=== PATIENT | female | born 1995 | race Caucasian/White ===

== ENCOUNTER 2022-10-11 21:14 | Outpatient (REF) | payer OTHER, SELFPAY ==
[2022-10-16 16:08] LABS: Age Gdln ACOG Testing Note (.); IGP, rfx Aptima HPV ASCU Note (.)
== END 2022-10-11 21:15 | disposition home or self-care (01) ==
LOC: LAB 21:14
PROVIDERS: Visit Provider Obstetrics & Gynecology
DX: R87.610 Atypical squamous cells of undetermined significance on cytologic smear of cervix (ASC-US) (principal); R87.810 Cervical high risk human papillomavirus (HPV) DNA test positive
CPT/HCPCS: G0145

== ENCOUNTER 2023-04-20 19:27 | Outpatient (REF) | payer OTHER, SELFPAY ==
[2023-05-02 21:11] LABS: Age Gdln ACOG Testing Note (.); HPV Aptima Negative (Negative); IGP, rfx Aptima HPV ASCU Note (.)
== END 2023-04-20 19:28 | disposition home or self-care (01) ==
LOC: LAB 19:27
PROVIDERS: Visit Provider Obstetrics & Gynecology
DX: Z01.419 Encounter for gynecological examination (general) (routine) without abnormal findings (principal)
CPT/HCPCS: G0145

== ENCOUNTER 2024-05-01 20:47 | Outpatient (REF) | payer OTHER, SELFPAY ==
--- OUTSIDE RECORDS SUMMARY | 2024-05-01 20:50 | XMS_ITS | CCD ---
Author Organization [facility] Care Team Providers Care Card Services Specialist Name Role Phone Jaylene DYE Wilson Primary Care Physician [phone] WENDY, DR NUNES Primary Care Unavailable ROCK ., DR ATKINS Admitting Unavailable ROCK ., DR ATKINS Consulting Unavailable ROCK ., DR ATKINS Attending Unavailable ROCK ., DR ATKINS Admitting Unavailable ROCK ., DR ATKINS Consulting Unavailable ROCK ., DR ATKINS Attending Unavailable WENDY, DR NUNES Primary Care Unavailable WILBERT MCCARTHY Attending Unavailable Doni Stephens MD Primary Care Provider [phone] Allergies Allergy Classification Reported Allergen(s) Allergy Type Date of Onset Reaction(s) Facility (2 sources) buPROPion; Translations: [bupropion] Drug Allergy 3 Eruption of skin (disorder), [facility] (3 sources) Sulfamethoxazole / Trimethoprim; Translations: [sulfamethoxazole-tr imethoprim] Drug Allergy 3 Weal (disorder), H[facility] (1 source) Sulfamethoxazole / Trimethoprim Drug Allergy 3 [facility] Repository Medications Current Medications Medication Drug Class(es) Dates Sig (Normalized) Sig (Original) Ethinyl Estradiol / Levonorgestrel (2 sources) Progestin, Estrogen, Progestin-containi ng Intrauterine Device Start: 10-04-2023 levonorgestrel-ethi nyl estradiol (Seasonale) 0.15-0.03 MG tablet Indications: Encounter for surveillance of contraceptive pills TAKE ONE TABLET BY MOUTH DAILY 91 tablet 4 10/04/2023 Active Start: 04-20-2023 levonorgestrel -ethinyl estradiol (Nordette) 0.15-30 MG-MCG tablet Indications: Encounter for surveillance of contraceptive pills Take 1 tablet by mouth in the morning. 28 tablet 11 04/20/2023 Active ethinyl estradiol-levonorgestrel extended cycle 30 mcg-0.15 mg Tab (1 source) Start: 04-25-2019 take 1 tablet by mouth once daily ethinyl estradiol-levonorgestrel extended cycle 30 mcg-0.15 mg Tab 1 tab(s), Oral, Daily, Refill(s) 0 Start Date: 04/25/19 Status: Ordered lisdexamfetamine dimesylate 30 mg oral capsule (1 source) Central Nervous System Stimulant Start: 07-20-2021 take 1 capsule by mouth once daily in the morning Vyvanse 30 mg oral capsule 30 mg, 1 cap(s), Oral, qAM, 30 cap(s), Refill(s) 0, [facility], 166, cm, 07/20/21 15:41:00 EDT, Height/Length Dosing, 60, kg, 07/20/21 15:41:00 EDT, Weight Dosing Start Date: 07/20/21 Status: Ordered Problems Active Problems Problem Classification Problem Date Documented Date Episodic/Chronic Attention-deficit, conduct, and disruptive behavior disorders (1 source) Adult attention deficit hyperactivity disorder 06-15-2021 Chronic Disorders usually diagnosed in infancy, childhood, or adolescence (1 source) Behavioral and emotional disorder with onset in childhood; Translations: [Other specified behavioral and emotional disorders with onset usually occurring in childhood and adolescence] Onset: 07-20-2021 Chronic Immunizations and screening for infectious disease (1 source) Encounter for screening for human papillomavirus (HPV); Translations: [ENC SCREENING HUMAN PAPILLOMAVIRUS] Onset: 05-13-2022 Episodic Other nervous system disorders (1 source) Disorder of autonomic nervous system 06-24-2014 Chronic Residual codes; unclassified (1 source) Body mass index 20-24 - normal; Translations: [Body mass index (BMI) 21.0-21.9, adult] Onset: 07-20-2021 Episodic Skin and subcutaneous tissue infections (1 source) Impetigo 03-10-2021 Episodic Unclassified (1 source) Body mass index 20-24 - normal 03-10-2021 Past or Other Problems Problem Classification Problem Date Documented Da te Episodic/Chronic Other screening for suspected conditions (not mental disorders or infectious disease) (4 sources) Encounter for screening for malignant neoplasm of cervix; Translations: [ENC SCREENING MALIG NEOPLASM CERV] Onset: 10-07-2021 Episodic Unclassified (1 source) Onset: 10-25-2013 Resolved: 06-24-2014 10-02-2014 Results Test Name Value Interpretation Reference Range Facility Pap IG, rfx Aptima HPV, rfx 16/18,45on 05-17-2022 . . Normal [facility] Comment on above: Result Comment: Perf ormed at: [facility] Performed By: #### P APHR2A #### [facility] [address] [address] [address] Vj George DIAGNOSIS: Comment Abnormal [facility] Comment on above: Result Comment: EPIT HELIAL CELL ABNORMALITY. ATYPICAL SQUAMOUS CELLS OF UNDETERMINED SIGNIFICANCE (ASC-US). Performed at: [facility] Performed By: #### P APHR2A #### [facility] [address] [address] [address] Vj George Electronically signed by: Comment Normal [facility] Comment on above: Result Comment: Jake Beverly MD (Charles), Pathologist Performed at: [facility] Performed By: #### P APHR2A #### [facility] [address] [address] [address] Vj George HPV Aptima Positive Abnormal Negative [facility] Comment on above: Result Comment: This nucleic acid amplification test detects fourteen high-risk HPV types (16,18,31,33,35,39,45,51,52,56,58,59,66,68) without differentiation. Performed at: =G Performed By: #### P APHR2A #### [facility] [address] [address] [address] Vj George HPV Genotype Reflex Comment Normal [facility] Comment on above: Result Comment: Crit eria not met, HPV Genotype not performed. Performed at: [facility] Performed By: #### P APHR2A #### [facility] [address] [address] [address] Vj George Methodology: Comment [facility] Comment on above: Result Comment: This liquid based ThinPrep(R) pap test was screened with the use of an image guided system. Performed at: WB Performed By: #### P APHR2A #### [facility] [address] [place] [address] Dr. Vj George Note: Comment [facility] Comment on above: Result Comment: The Pap smear is a screening test designed to aid in the detection of premalignant and malignant conditions of the uterine cervix. It is not a diagnostic procedure and should not be used as the sole means of detecting cervical cancer. Both false-positive and false-negative reports do occur. . Performed at: WB Performed By: #### P APHR2A #### [facility] [address] [address] [address] Vj Geroge Pathologist Provided ICD10 Comment [facility] Comment on above: Result Comment: R87. 610 Performed at: [facility] Performed By: #### P APHR2A #### [facility] [address] [place] [address] Dr. Vj George Performed by: Comment Normal [facility] Comment on above: Result Comment: Alem Grimm Client Program Manager (ASCP) Performed at: [facility] Performed By: #### P APHR2A #### [facility] [address] [place] [address] Dr. Vj George Specimen adequacy: Comment Normal [facility] Comment on above: Result Comment: Sati sfactory for evaluation. Endocervical and/or squamous metaplastic cells (endocervical component) are present. Performed at: [facility] Performed By: #### P APHR2A #### [facility] [address] [address] [address] Vj George PAP ACOG PANEL 2: 21 to 29on 10-14-2021 . . [facility] Comment on above: Performed By: #### [id number] #### [facility] [address] [address] [address] Vj George Age Gdln ACOG Testing - [facility] Comment on above: Performed By: #### [id number] #### [facility] [address] [place] [address] Dr. Vj George DIAGNOSIS: Comment Abnormal [facility] Comment on above: Result Comment: EPIT HELIAL CELL ABNORMALITY. ATYPICAL SQUAMOUS CELLS OF UNDETERMINED SIGNIFICANCE (ASC-US). Performed By: #### [id number] #### [facility] [address] [place] [address] Dr. Vj George Electronically signed by: Comment Normal [facility] Comment on above: Result Comment: Loly Young MD, Pathologist Performed By: #### [id number] #### [facility] [address] [place] [address] Dr. Vj George HPV Aptima Positive Abnormal Negative [facility] Comment on above: Result Comment: This nucleic acid amplification test detects fourteen high-risk HPV types (16,18,31,33,35,39,45,51,52,56,58,59,66,68) without differentiation. Performed By: #### [id number] #### [facility] [address] [place] [address] Dr. Vj George Methodology: Comment Normal [facility] Comment on above: Result Comment: This liquid based ThinPrep(R) pap test was screened with the use of an image guided system. Performed By: #### [id number] #### [facility] [address] [place] [address] Dr. Vj George Note: Comment Normal [facility] Comment on above: Result Comment: The Pap smear is a screening test designed to aid in the detection of premalignant and malignant conditions of the uterine cervix. It is not a diagnostic procedure and should not be used as the sole means of detecting cervical cancer. Both false-positive and false-negative reports do occur. . Performed By: #### 4 [id number] #### [facility] [address] [place] [address] Dr. Vj George Pathologist Provided ICD10 Comment Normal [facility] Comment on above: Result Comment: R87. 610 Performed By: #### 4 [id number] #### [facility] [address] [place] [address] Dr. Vj George Performed by: Comment Normal [facility] Comment on above: Result Comment: Rey Alan, Client Program Manager (ASCP) Performed By: #### [id number] #### [facility] [address] [address] [address] Vj George Recommendation: Comment Abnormal [facility] Comment on above: Result Comment: Sugg est follow up as clinically appropriate. Performed By: #### [id number] #### [facility] [address] [address] [address] Vj George Reflex Criteria: Comment Normal [facility] Comment on above: Result Comment: See below for HPV testing results. . Performed By: #### 4 [id number] #### [facility] [address] [address] [address] Vj George Specimen adequacy: Comment Normal [facility] Comment on above: Result Comment: Sati sfactory for evaluation. Endocervical and/or squamous metaplastic cells (endocervical component) are present. Performed By: #### 4 [id number] #### [facility] [address] [address] [address] Vj George Family Medicine Video Visit - Telehealthon 07-20-2021 Family Medicine Video Visit - Telehealth Chief Complaint pt having video visit via [employer] for 1mo add chk, rf vyvanse to [facility] History of Present Illness Telehealth visit via video for 1 month follow-up appointment to reassess ADD symptoms. Patient last evaluated per this provider on 06/15/2021 -see note, at that time Vyvanse increased to 30 mg once daily. Able to better concentrate, stay focused and on task more so throughout the day, previously felt medication lost its effect after first few weeks of taking. Medication more so beneficial at 30 mg dosing. Eating and drinking appropriately. Sleeping well. Patient would like to continue current medication regimen. There has been no chest pain, shortness of breath, palpitations or syncopal episodes. Review of Systems Review of Systems: See HPI. Constitutional: See HPI. Cardiovascular: Denies chest pain or pressure, palpitations. Neurologic: See HPI. Gastrointestinal: Eating and drinking appropriately. Physical Exam Vitals & Measurements HT: 166 cm HT: 166.0 cm WT: 60 kg WT: 60.0 kg BMI: 21.77 General: Well developed, well nourished, female adult in no acute distress sitting upright in living room setting. Engages with provider appropriately. Head: Normocephalic/atraumati c. Eyes: No conjunctival irritation. Ears: Grossly normal hearing. Nose: No discharge. Mouth: MMM, talkative. Chest: No distress. Skin: Skin is fairly tanned. Mental Status: Alert and cooperative. Pleasant, appreciative. Assessment/Plan 1. Adult attention deficit disorder (F98.8: Other specified behavioral and emotional disorders with onset usually occurring in childhood and adolescence) Well-controlled with current dosing of Vyvanse 30 mg. Prescription refills provided. OARRS reviewed and is appropriate. Patient tolerates medication well, denies adverse effects. Continue current medication regimen as prescribed. Agreeable to 3-month follow-up appointment to reassess condition. Please call if questions or concerns arise prior to follow-up appointment as scheduled. 2. BMI 21.0-21.9, adult (Z68.21: Body mass index [BMI] 21.0-21.9, adult) Maintain a healthy weight. This visit was conducted via two-way, real-time interactive video communications from my office using [employer] due to the restrictions of the COVID-19 pandemic. No physical exam was conducted other than those areas of the body visible to telecommunications with the patient located at [address] [place] [address] [phone], with no one else in attendance. If it is determined that the patient should be evaluated in the clinic, the patient will be directed to the appropriate clinic or venue. The patient or their guardian verbally consented to this visit. Total time spent preparing the chart, conducting the encounter with the patient and family, and time spent documenting, reviewing, and ordering tests was 15 minutes. Please Note: Portions of this chart may have been created using [employer] voice recognition software. Occasional wrong-word or sound-like substitutions may have occurred due to inherent limitations of the voice recognition software. Please read the chart carefully and recognize, using context, where the substitutions have occurred. Follow-up With When Contact Information [facility] Within 3 months Additional Instructions: Patient Education BMI for Adults Problem List/Past Medical History Ongoing Adult attention deficit disorder BMI 21.0-21.9, adult Impetigo vulgaris Historical Medications ethinyl estradiol-levonorgestre l extended cycle 30 mcg-0.15 mg Tab, 1 tab(s), Oral, Daily Vyvanse 30 mg oral capsule, 30 mg= 1 cap(s), Oral, qAM Allergies Bactrim (Hives) Septra Wellbutrin (Rash) Social History Alcohol - Denies Alcohol Use, 06/24/2014 Current, Beer, 1-2 times per month, 04/25/2019 Substance Abuse - Denies Substance Abuse, 06/24/2014 Tobacco - Denies Tobacco Use, 06/24/2014 Never (less than 100 in lifetime) Tobacco Use:. Never Smokeless Tobacco Use:., 07/20/2021 Family History Depression: Mother and Father. Hyperlipidemia: Father. Hypertension: Father. Primary malignant neoplasm of colon: Father. Immunizations Vaccine Date Status Comments SARS-CoV-2 (COVID-19) Ad26 vaccine - Not Given Postpone due to refusal influenza virus vaccine, inactivated - Not Given Patient Refuses influenza virus vaccine, live, trivalent - Not Given Patient Refuses Normal [facility] Comment on above: Result Comment: Elec tronically Signed By: Jaylene DYE CNP\.danya\Date and Time Signed: 07/20/21 16:25 EDT Patient Educationon 07-21-19 22 Patient Education Nutrition BMI for Adults Body mass index (BMI) is a number that is calculated from a person's weight and height. BMI may help to estimate how much of a person's weight is composed of fat. BMI can help identify those who may be at higher risk for certain medical problems. How is BMI used with adults? BMI is used as a screening tool to identify possible weight problems. It is used to check whether a person is obese, overweight, healthy weight, or underweight. How is BMI calculated? BMI measures your weight and compares it to your height. This can be done either in [place] or metric measurements. Note that charts are available to help you find your BMI quickly and easily without having to do these calculations yourself. To calculate your BMI in [place] measurements, your health care provider will: 1. Measure your weight in pounds (lb). 2. Multiply the number of pounds by 703. ? For example, for a person who weighs 180 lb, multiply that number by 703, which equals 126,540. 3. Measure your height in inches (in). Then multiply that number by itself to get a measurement called inches squared. ? For example, for a person who is 70 in tall, the inches squared measurement is 70 in x 70 in, which equals 4900 inches squared. 4. Divide the total from Step 2 (number of lb x 703) by the total from Step 3 (inches squared): 126,540 ? 4900 = 25.8. This is your BMI. To calculate your BMI in metric measurements, your health care provider will: 1. Measure your weight in kilograms (kg). 2. Measure your height in meters (m). Then multiply that number by itself to get a measurement called meters squared. ? For example, for a person who is 1.75 m tall, the meters squared measurement is 1.75 m x 1.75 m, which is equal to 3.1 meters squared. 3. Divide the number of kilograms (your weight) by the meters squared number. In this example: 70 ? 3.1 = 22.6. This is your BMI. How is BMI interpreted? To interpret your results, your health care provider will use BMI charts to identify whether you are underweight, normal weight, overweight, or obese. The following guidelines will be used: ? Underweight: BMI less than 18.5. ? Normal weight: BMI between 18.5 and 24.9. ? Overweight: BMI between 25 and 29.9. ? Obese: BMI of 30 and above. Please note: ? Weight includes both fat and muscle, so someone with a muscular build, such as an athlete, may have a BMI that is higher than 24.9. In cases like these, BMI is not an accurate measure of body fat. ? To determine if excess body fat is the cause of a BMI of 25 or higher, further assessments may need to be done by a health care provider. ? BMI is usually interpreted in the same way for men and women. Why is BMI a useful tool? BMI is useful in two ways: ? Identifying a weight problem that may be related to a medical condition, or that may increase the risk for medical problems. ? Promoting lifestyle and diet changes in order to reach a healthy weight. Summary ? Body mass index (BMI) is a number that is calculated from a person's weight and height. ? BMI may help to estimate how much of a person's weight is composed of fat. BMI can help identify those who may be at higher risk for certain medical problems. ? BMI can be measured using [place] measurements or metric measurements. ? To interpret your results, your health care provider will use BMI charts to identify whether you are underweight, normal weight, overweight, or obese. This information is not intended to replace advice given to you by your health care provider. Make sure you discuss any questions you have with your health care provider. Document Released: 11/22/2004 Document Revised: 02/23/2018 Document Reviewed: 01/24/2018 [employer] Patient Education ? 2019 [employer]. [facility] Family Medicine Office/Clini c Noteon 06-15-2021 Family Medicine Office/Clinic Note Chief Complaint Here for f/u on ADD. History of Present Illness Here today for 1 month follow-up appointment to reassess difficulty concentrating. Patient last evaluated per this provider via telehealth on 05/11/2021. At that time Vyvanse 20 mg prescribed, over the past month patient has noted much improvement in her ability to focus and stay on task. Since beginning medication she feels as if her daily routine has improved, better able to relax in the evening, now getting a full night sleep. Feels after the first week of initiating medication, medication seemed less effective. Continues to eating and drinking appropriately. Tolerates medication well, denies adverse side effects. There has been no chest pain, shortness of breath, palpitations or syncopal episodes. Review of Systems PHQ Score Initial Depression Screen Score: 0 Review of Systems: See HPI. Constitutional: See HPI. EENT: Denies hearing changes, visual changes. Cardiovascular: Denies chest pain or pressure, shortness of breath with normal activity, palpitations. Neurologic: Denies weakness, numbness or tingling, headaches. See HPI. Physical Exam Vitals & Measurements T: 36.2 ?C(Tympanic) HR: 88(Peripheral) RR: 12 BP: 114/70 HT: 166 cm HT: 166.0 cm WT: 60.0 kg WT: 60.0 kg BMI: 21.77 General: Well developed, well nourished, female adult in no acute distress sitting upright on exam table. Head: Normocephalic/atraumati c. Eyes: No conjunctival irritation, pupils symmetric. Ears: Grossly normal hearing. Nose: No discharge. Mouth: MMM, talkative. Neck: Supple. No carotid bruits, bilaterally. Chest: No distress. Lungs: Normal respiratory effort and clear to auscultation. No rhonchi or wheeze. Cardio: RRR, without murmur. Musculoskeletal: Steady gait. Neurologic: Grossly normal. Skin: Skin is fairly tanned, warm and dry. Mental Status: Alert and cooperative. Pleasant, appreciative. Assessment/Plan 1. Adult attention deficit disorder (F98.8: Other specified behavioral and emotional disorders with onset usually occurring in childhood and adolescence) Much improvements have been noted, yet patient notes room for improvement. We will increase Vyvanse dosing to 30 mg once daily. OARRS reviewed and is appropriate. Agreeable to 1 month follow-up appointment to reassess symptoms. Discussed potential side effects of medication and addiction potential. Patient verbalizes understanding and agrees with plan. 2. BMI 21.0-21.9, adult (Z68.21: Body mass index [BMI] 21.0-21.9, adult) Maintain a healthy weight. Please Note: Portions of this chart may have been created using [employer] voice recognition software. Occasional wrong-word or sound-like substitutions may have occurred due to inherent limitations of the voice recognition software. Please read the chart carefully and recognize, using context, where the substitutions have occurred. Follow-up With When Contact Information Jaylene DYE CNP In [address] [place] [phone] Additional Instructions: telehealth f/u ok. Patient Education BMI for Adults Problem List/Past Medical History Ongoing Adult attention deficit disorder BMI 21.0-21.9, adult Impetigo vulgaris Historical Medications ethinyl estradiol-levonorgestre l extended cycle 30 mcg-0.15 mg Tab, 1 tab(s), Oral, Daily Vyvanse 30 mg oral capsule, 30 mg= 1 cap(s), Oral, qAM Allergies Bactrim (Hives) Septra Wellbutrin (Rash) Social History Alcohol - Denies Alcohol Use, 06/24/2014 Current, Beer, 1-2 times per month, 04/25/2019 Substance Abuse - Denies Substance Abuse, 06/24/2014 Tobacco - Denies Tobacco Use, 06/24/2014 Never (less than 100 in lifetime) Tobacco Use:. Never Smokeless Tobacco Use:., 06/15/2021 Family History Depression: Mother and Father. Hyperlipidemia: Father. Hypertension: Father. Primary malignant neoplasm of colon: Father. Immunizations Vaccine Date Status Comments influenza virus vaccine, inactivated - Not Given Patient Refuses influenza virus vaccine, live, trivalent - Not Given Patient Refuses Total time spent preparing the chart, conducting of the encounter with the patient and family and time spent documenting, reviewing, and ordering tests was 20 minutes. [facility] Comment on above: Result Comment: Elec tronically Signed By: Jaylene DYE CNP\.danya\Date and Time Signed: 06/15/21 13:25 EDT Patient Educationon 06-16-19 Patient Education Nutrition BMI for Adults Body mass index (BMI) is a number that is calculated from a person's weight and height. BMI may help to estimate how much of a person's weight is composed of fat. BMI can help identify those who may be at higher risk for certain medical problems. How is BMI used with adults? BMI is used as a screening tool to identify possible weight problems. It is used to check whether a person is obese, overweight, healthy weight, or underweight. How is BMI calculated? BMI measures your weight and compares it to your height. This can be done either in [place] ([place] or metric measurements. Note that charts are available to help you find your BMI quickly and easily without having to do these calculations yourself. To calculate your BMI in [place] measurements, your health care provider will: 1. Measure your weight in pounds (lb). 2. Multiply the number of pounds by 703. ? For example, for a person who weighs 180 lb, multiply that number by 703, which equals 126,540. 3. Measure your height in inches (in). Then multiply that number by itself to get a measurement called inches squared. ? For example, for a person who is 70 in tall, the inches squared measurement is 70 in x 70 in, which equals 4900 inches squared. 4. Divide the total from Step 2 (number of lb x 703) by the total from Step 3 (inches squared): 126,540 ? 4900 = 25.8. This is your BMI. To calculate your BMI in metric measurements, your health care provider will: 1. Measure your weight in kilograms (kg). 2. Measure your height in meters (m). Then multiply that number by itself to get a measurement called meters squared. ? For example, for a person who is 1.75 m tall, the meters squared measurement is 1.75 m x 1.75 m, which is equal to 3.1 meters squared. 3. Divide the number of kilograms (your weight) by the meters squared number. In this example: 70 ? 3.1 = 22.6. This is your BMI. How is BMI interpreted? To interpret your results, your health care provider will use BMI charts to identify whether you are underweight, normal weight, overweight, or obese. The following guidelines will be used: ? Underweight: BMI less than 18.5. ? Normal weight: BMI between 18.5 and 24.9. ? Overweight: BMI between 25 and 29.9. ? Obese: BMI of 30 and above. Please note: ? Weight includes both fat and muscle, so someone with a muscular build, such as an athlete, may have a BMI that is higher than 24.9. In cases like these, BMI is not an accurate measure of body fat. ? To determine if excess body fat is the cause of a BMI of 25 or higher, further assessments may need to be done by a health care provider. ? BMI is usually interpreted in the same way for men and women. Why is BMI a useful tool? BMI is useful in two ways: ? Identifying a weight problem that may be related to a medical condition, or that may increase the risk for medical problems. ? Promoting lifestyle and diet changes in order to reach a healthy weight. Summary ? Body mass index (BMI) is a number that is calculated from a person's weight and height. ? BMI may help to estimate how much of a person's weight is composed of fat. BMI can help identify those who may be at higher risk for certain medical problems. ? BMI can be measured using [place] measurements or metric measurements. ? To interpret your results, your health care provider will use BMI charts to identify whether you are underweight, normal weight, overweight, or obese. This information is not intended to replace advice given to you by your health care provider. Make sure you discuss any questions you have with your health care provider. Document Released: 11/22/2004 Document Revised: 02/23/2018 Document Reviewed: 01/24/2018 [employer] Patient Education ? 2019 [employer] Normal [facility] Family Medicine Video Visit - Telehealthon 05-12-2021 Family Medicine Video Visit - Telehealth Chief Complaint Video apt for f/u for medication for Wellbutrin. She started to itch really bad, took allergy meds it didn't help. Stopped the medication monday and itch is better but still there. History of Present Illness Telehealth visit via video for 1 month follow-up appointment to reassess difficulty concentrating. Patient last evaluated per this provider on 04/07/2021 -see note. At that time increased dosing of Wellbutrin she noticed more difficulty sleeping and now has developed generalized itching. Has since discontinued medication, itching has since improved. 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 At last office visit on 04/07/2021 patient completed ADHD adult self assessment, which did indicate potential underlying issue with attention deficit Review of Systems Review of Systems: See HPI. Constitutional: See HPI. Skin: See HPI. Denies rash. Neurologic: See HPI. Gastrointestinal: Eating and drinking appropriately. Psychiatric: Denies anxiety, depressed or hopeless, suicidal thoughts. Physical Exam Vitals & Measurements HT: 166.0 cm HT: 166 cm WT: 59.6 kg WT: 59.6 kg BMI: 21.63 General: Well developed, well nourished, adult female in no acute distress sitting upright in living room setting. Engages with provider appropriately. Head: Symmetric/atraumatic. Eyes: No conjunctival irritation. Ears: Grossly normal hearing. Mouth: MMM, talkative. Chest: No distress. Neurologic: Without tremor. Skin: Skin is fairly tanned. Mental Status: Alert and cooperative. Pleasant, appreciative, conversation appropriate. Assessment/Plan 1. Attention deficit disorder of adult (F98.8: Other specified behavioral and emotional disorders with onset usually occurring in childhood and adolescence) Patient with poor response with use of Wellbutrin, self-assessment questionnaire indicating underlying issue with attention deficit disorder in adult, will trial low-dose Vyvanse, reviewed directions for use along with potential side effects of medication. Denies chance of , compliant with OCP. Agreeable to 1 month follow-up appointment to reassess condition and medication tolerance. Please call if questions or concerns arise prior to follow-up appointment as scheduled. Patient verbalizes understanding and agrees with plan. OARRS reviewed and is unremarkable. 2. BMI 21.0-21.9, adult (Z68.21: Body mass index [BMI] 21.0-21.9, adult) Maintain a healthy weight. This visit was conducted via two-way, real-time interactive video communications from my office using [employer] due to the restrictions of the COVID-19 pandemic. No physical exam was conducted other than those areas of the body visible to telecommunications with the patient located at [address] [place] [address] [phone], with no one else in attendance. If it is determined that the patient should be evaluated in the clinic, the patient will be directed to the appropriate clinic or venue. The patient or their guardian verbally consented to this visit. Total time spent preparing the chart, conducting the encounter with the patient and family, and time spent documenting, reviewing, and ordering tests was 20 minutes. Please Note: Portions of this chart may have been created using [employer] voice recognition software. Occasional wrong-word or sound-like substitutions may have occurred due to inherent limitations of the voice recognition software. Please read the chart carefully and recognize, using context, where the substitutions have occurred. Follow-up With When Contact Information Jaylene DYE CNP In [address] [place] [phone] Additional Instructions: Patient Education BMI for Adults Problem List/Past Medical History Ongoing BMI 21.0-21.9, adult Impetigo vulgaris Historical Medications ethinyl estradiol-levonorgestre l extended cycle 30 mcg-0.15 mg Tab, 1 tab(s), Oral, Daily Vyvanse 20 mg oral capsule, 20 mg= 1 cap(s), Oral, qAM Allergies Bactrim (Hives) Septra Wellbutrin (Rash) Social History Alcohol - Denies Alcohol Use, 06/24/2014 Current, Beer, 1-2 times per month, 04/25/2019 Substance Abuse - Denies Substance Abuse, 06/24/2014 Tobacco - Denies Tobacco Use, 06/24/2014 Never (less than 100 in lifetime) Tobacco Use:. Never Smokeless Tobacco Use:., 05/11/2021 Family History Depression: Mother and Father. Hyperlipidemia: Father. Hypertension: Father. Primary malignant neoplasm of colon: Father. Immunizations Vaccine Date Status Comments influenza virus vaccine, live, trivalent - Not Given Patient Refuses [facility] Comment on above: Result Comment: Elec tronically Signed By: Jaylene DYE CNP\.danya\Date and Time Signed: 05/12/21 11:27 EST Patient Educationon 05-11-19 Patient Education Nutrition BMI for Adults Body mass index (BMI) is a number that is calculated from a person's weight and height. BMI may help to estimate how much of a person's weight is composed of fat. BMI can help identify those who may be at higher risk for certain medical problems. How is BMI used with adults? BMI is used as a screening tool to identify possible weight problems. It is used to check whether a person is obese, overweight, healthy weight, or underweight. How is BMI calculated? BMI measures your weight and compares it to your height. This can be done either in [place] or metric measurements. Note that charts are available to help you find your BMI quickly and easily without having to do these calculations yourself. To calculate your BMI in [place] measurements, your health care provider will: 1. Measure your weight in pounds (lb). 2. Multiply the number of pounds by 703. ? For example, for a person who weighs 180 lb, multiply that number by 703, which equals 126,540. 3. Measure your height in inches (in). Then multiply that number by itself to get a measurement called inches squared. ? For example, for a person who is 70 in tall, the inches squared measurement is 70 in x 70 in, which equals 4900 inches squared. 4. Divide the total from Step 2 (number of lb x 703) by the total from Step 3 (inches squared): 126,540 ? 4900 = 25.8. This is your BMI. To calculate your BMI in metric measurements, your health care provider will: 1. Measure your weight in kilograms (kg). 2. Measure your height in meters (m). Then multiply that number by itself to get a measurement called meters squared. ? For example, for a person who is 1.75 m tall, the meters squared measurement is 1.75 m x 1.75 m, which is equal to 3.1 meters squared. 3. Divide the number of kilograms (your weight) by the meters squared number. In this example: 70 ? 3.1 = 22.6. This is your BMI. How is BMI interpreted? To interpret your results, your health care provider will use BMI charts to identify whether you are underweight, normal weight, overweight, or obese. The following guidelines will be used: ? Underweight: BMI less than 18.5. ? Normal weight: BMI between 18.5 and 24.9. ? Overweight: BMI between 25 and 29.9. ? Obese: BMI of 30 and above. Please note: ? Weight includes both fat and muscle, so someone with a muscular build, such as an athlete, may have a BMI that is higher than 24.9. In cases like these, BMI is not an accurate measure of body fat. ? To determine if excess body fat is the cause of a BMI of 25 or higher, further assessments may need to be done by a health care provider. ? BMI is usually interpreted in the same way for men and women. Why is BMI a useful tool? BMI is useful in two ways: ? Identifying a weight problem that may be related to a medical condition, or that may increase the risk for medical problems. ? Promoting lifestyle and diet changes in order to reach a healthy weight. Summary ? Body mass index (BMI) is a number that is calculated from a person's weight and height. ? BMI may help to estimate how much of a person's weight is composed of fat. BMI can help identify those who may be at higher risk for certain medical problems. ? BMI can be measured using [place] measurements or metric measurements. ? To interpret your results, your health care provider will use BMI charts to identify whether you are underweight, normal weight, overweight, or obese. This information is not intended to replace advice given to you by your health care provider. Make sure you discuss any questions you have with your health care provider. Document Released: 11/22/2004 Document Revised: 02/23/2018 Document Reviewed: 01/24/2018 [employer] Patient Education ? 2019 [employer]. Normal [facility] Screenson 04-14-2021 Screens [id number] D:127 Normal [facility] Family Medicine Office/Clini c Noteon 04-08-2021 Family Medicine Office/Clinic Note Chief Complaint Here for f/u on concentration issues. She doesn't notice any difference. History of Present Illness Suzi presents for follow-up on difficulty concentrating, she was last evaluated 03/10/2021. She started taking Wellbutrin to help with concentration. She states that she is unsure if this has been working for her because she is still having some trouble concentrating. The patient denies side effects or allergic reaction to the medication. Mother has been diagnosed with bipolar disorder as well as anxiety. The patient is aware that bipolar disorder can be hereditary and denies having any symptoms or suspicions of bipolar disorder in herself. Mood Disorder Questionnaire MDQ Increased hyperactivity : No MDQ Increased irritability : No MDQ Increased self-confidence : No MDQ Less need for sleep : No MDQ More and faster speech : Yes MDQ Racing thoughts : No MDQ Distracted/unable to concentrate : Yes MDQ Increased energy : No MDQ Increased activity : Yes MDQ Excessive, foolish, risky behavior : No MDQ Increased interest in sex : No MDQ Excessive, foolish, risky behavior : No MDQ Increased spending : No [1] Review of Systems See HPI. Constitutional: See HPI. EENT: Denies hearing changes, visual changes. Respiratory: Denies cough, wheezing or difficulty breathing. Cardiovascular: Denies chest pain or pressure, shortness of breath. Neurologic: Denies weakness, numbness or tingling, headaches. Gastrointestinal: Eating and drinking appropriately. Psychiatric: Denies anxiety, depressed or hopeless, suicidal thoughts. Positive for difficulty concentrating. Physical Exam Vitals & Measurements T: 36.2 ?C(Tympanic) HR: 100(Peripheral) RR: 16 BP: 110/60 HT: 166.0 cm HT: 166 cm WT: 59.6 kg WT: 59.6 kg BMI: 21.63 General: Well developed, well nourished, adult female in no acute distress sitting upright on exam table. Head: Wearing hat. Eyes: No conjunctival irritation. Ears: Grossly normal hearing. Mouth: Wearing mask given pandemic, talkative. Neck: Supple. Chest: No distress. Musculoskeletal: Steady gait. Neurologic: Without tremor. Skin: Skin is fairly tanned, warm and dry. Mental Status: Alert and cooperative. Pleasant, appreciative, conversation appropriate. Assessment/Plan 1. Difficulty concentrating (R41.840: Attention and concentration deficit) Increase Wellbutrin XL to 300 mg daily. Aware of directions for use along with potential side effects of medication. She will return in 1 month for reevaluation of this medication. Please call if questions or concerns arise prior to follow-up as scheduled. Patient verbalizes understanding and agrees with plan. 2. BMI 21.0-21.9, adult (Z68.21: Body mass index [BMI] 21.0-21.9, adult) Maintain a healthy weight. ATTESTATION: Documentation services were performed after patient or guardian consented to allow [employer] to record this visit. KATHE associate relations specialist and provider reviewed before signing. KATHE: Aditi Schuler. Reviewed and entered into [employer] by Joanie Morley. Follow-up With When Contact Information Jaylene DYE CNP In [address] [place], [place] [phone]- Additional Instructions: Patient Education BMI for Adults Problem List/Past Medical History Ongoing BMI 21.0-21.9, adult Difficulty concentrating Impetigo vulgaris Historical Medications ethinyl estradiol-levonorgestre l extended cycle 30 mcg-0.15 mg Tab, 1 tab(s), Oral, Daily Wellbutrin XL 300 mg/24 hours Tab-ER, 300 mg= 1 tab(s), Oral, Daily, 1 refills Allergies Bactrim (Hives) Septra Wellbutrin (Rash) Social History Alcohol - Denies Alcohol Use, 06/24/2014 Current, Beer, 1-2 times per month, 04/25/2019 Substance Abuse - Denies Substance Abuse, 06/24/2014 Tobacco - Denies Tobacco Use, 06/24/2014 Never (less than 100 in lifetime) Tobacco Use:. Never Smokeless Tobacco Use:., 04/07/2021 Family History Depression: Mother and Father. Hyperlipidemia: Father. Hypertension: Father. Primary malignant neoplasm of colon: Father. Immunizations Vaccine Date Status Comments influenza virus vaccine, live, trivalent - Not Given Patient Refuses [1] Mood Disorder Questionnaire (MDQ); Jaylene DYE CNP 04/07/2021 10:58 EST Normal [facility] Comment on above: Result Comment: Elec tronically Signed By: Jaylene DYE CNP\.br\Date and Time Signed: 04/08/21 15:00 EST\.br\Electronically Co-Signed By: Joanie Morley\.br\Date and Time Co-Signed: 04/07/21 13:52 EST Ambulatory Clinical Summaryo n 04-07-2021 Ambulatory Clinical Summary {[id number] Normal [facility] Patient Educationon 04-07-19 Patient Education Nutrition BMI for Adults Body mass index (BMI) is a number that is calculated from a person's weight and height. BMI may help to estimate how much of a person's weight is composed of fat. BMI can help identify those who may be at higher risk for certain medical problems. How is BMI used with adults? BMI is used as a screening tool to identify possible weight problems. It is used to check whether a person is obese, overweight, healthy weight, or underweight. How is BMI calculated? BMI measures your weight and compares it to your height. This can be done either in [place] or metric measurements. Note that charts are available to help you find your BMI quickly and easily without having to do these calculations yourself. To calculate your BMI in [place] measurements, your health care provider will: 1. Measure your weight in pounds (lb). 2. Multiply the number of pounds by 703. ? For example, for a person who weighs 180 lb, multiply that number by 703, which equals 126,540. 3. Measure your height in inches (in). Then multiply that number by itself to get a measurement called inches squared. ? For example, for a person who is 70 in tall, the inches squared measurement is 70 in x 70 in, which equals 4900 inches squared. 4. Divide the total from Step 2 (number of lb x 703) by the total from Step 3 (inches squared): 126,540 ? 4900 = 25.8. This is your BMI. To calculate your BMI in metric measurements, your health care provider will: 1. Measure your weight in kilograms (kg). 2. Measure your height in meters (m). Then multiply that number by itself to get a measurement called meters squared. ? For example, for a person who is 1.75 m tall, the meters squared measurement is 1.75 m x 1.75 m, which is equal to 3.1 meters squared. 3. Divide the number of kilograms (your weight) by the meters squared number. In this example: 70 ? 3.1 = 22.6. This is your BMI. How is BMI interpreted? To interpret your results, your health care provider will use BMI charts to identify whether you are underweight, normal weight, overweight, or obese. The following guidelines will be used: ? Underweight: BMI less than 18.5. ? Normal weight: BMI between 18.5 and 24.9. ? Overweight: BMI between 25 and 29.9. ? Obese: BMI of 30 and above. Please note: ? Weight includes both fat and muscle, so someone with a muscular build, such as an athlete, may have a BMI that is higher than 24.9. In cases like these, BMI is not an accurate measure of body fat. ? To determine if excess body fat is the cause of a BMI of 25 or higher, further assessments may need to be done by a health care provider. ? BMI is usually interpreted in the same way for men and women. Why is BMI a useful tool? BMI is useful in two ways: ? Identifying a weight problem that may be related to a medical condition, or that may increase the risk for medical problems. ? Promoting lifestyle and diet changes in order to reach a healthy weight. Summary ? Body mass index (BMI) is a number that is calculated from a person's weight and height. ? BMI may help to estimate how much of a person's weight is composed of fat. BMI can help identify those who may be at higher risk for certain medical problems. ? BMI can be measured using [place] measurements or metric measurements. ? To interpret your results, your health care provider will use BMI charts to identify whether you are underweight, normal weight, overweight, or obese. This information is not intended to replace advice given to you by your health care provider. Make sure you discuss any questions you have with your health care provider. Document Released: 11/22/2004 Document Revised: 02/23/2018 Document Reviewed: 01/24/2018 [employer] Patient Education ? 2019 [employer] [facility] Family Medicine Office/Clini c Noteon 03-11-2021 Family Medicine Office/Clinic Note Chief Complaint Here for face rash cream. Muprocician. Also having trouble focusing. History of Present Illness Mona Hernandez presents today for an evaluation. She is a previous patient of Danna Rice CNP. She reports having a impetigo-like rash that is present on her face. She states that this rash is occasionally present surrounding her mouth, on her ears, and on her nose. Her ears and nose have been clear of the rash for the last 4-5 months. She states that rash starts with a spot on her face. She has been washing her face with regular soap and water as well as applying mupirocin to the area, she has also been changing her face masks frequently. She denies any personal history of staph infection, her sister had contracted staph as a child. She is eating and drinking adequately. She has started a new business recently. She states that she feels overwhelmed at times and her mother had urged her to mention this during her appointment. She is unsure if this is due to recent life changes. She states that she has always had issues with concentration, she adds that her success in school varied. She reports a familial history of depression and anxiety. She does not believe she has issues with anxiety, she also denies having social anxiety. However, when under Danna's care, Danna had commented that she presented as anxious. She was initially place on Wellbutrin, she did not tolerate this well as she developed a rash. She is unsure if the rash was attributed to the Wellbutrin because she was also sick at the time this developed. She also notes having tinnitus and constipation initially with Wellbutrin, but these side effects began to subside. She also notes having more energy while on Wellbutrin. She was then placed on Lexapro, she has discontinued taking this as she did not believe it was helpful for her and she had felt shaky while on this medication. She had taken Lexapro for 2 months. She is willing to try Wellbutrin again. She denies any suicidal or homicidal ideations. She is able to fulfill her orders, she does note procrastinating some. She answers no to the depression questionnaire. She report having trouble relaxing and restlessness 2-3 days a week, this affects her work productivity. She rates this as somewhat difficult. She has a history of autonomic dysfunction. She states that when she was in high school she has recurrent episodes of syncope with exertion. She had a tilt table test performed and this was when she was diagnosed with autonomic dysfunction. She was on medication for this for a while. She states that she does not have many issues with this currently, there are times when she will feel dizzy. However, after sitting for a few minutes she feels fine. She is a [id number] mother to a 6-year-old daughter. Review of Systems PHQ Score Initial Depression Screen Score: 0 Initial Depression Screen Score: 0 Skin: Positive for facial rash. Neurologic: Denies weakness, numbness or tingling, headaches that are new or changing in frequency, visual disturbances. Positive for occasional dizziness, history of autonomic dysfunction. Psychiatric: Denies anxiety, depressed or hopeless, suicidal thoughts. Physical Exam Vitals & Measurements T: 36.5 ?C(Tympanic) HR: 72(Peripheral) RR: 12 BP: 120/60 HT: 166 cm HT: 166.0 cm WT: 60.3 kg WT: 60.3 kg BMI: 21.88 General: Well developed, well nourished, female adult in no acute distress sitting upright on exam table. Head: Normocephalic/atraumati c. Eyes: No conjunctival irritation. Ears: Grossly normal hearing. Nose: No discharge. Mouth: MMM, talkative. Neck: Supple. Chest: No distress. Musculoskeletal: Steady gait. Neurologic: Grossly normal. Skin: Skin is warm and dry. There is a 3 mm erythematous papule with overlying dry skin to cheek. No active discharge. Mental Status: Alert and cooperative. Pleasant, appreciative, conversation appropriate. Assessment/Plan 1. Impetigo vulgaris (L01.00: Impetigo, unspecified) History of this, presentation today with minimal, yet patient notes improvements with mupirocin use in the past. Mupirocin refilled and sent to patient's pharmacy -reviewed directions for use with patient. 2. Difficulty concentrating (R41.840: Attention and concentration deficit) We will restart Wellbutrin XL 150 mg once daily. If she develops a rash, she is to discontinue medication and notify me. Reviewed directions for use along with potential side effects of medication. We will follow-up in 1 month. 3. BMI 21.0-21.9, adult (Z68.21: Body mass index [BMI] 21.0-21.9, adult) Maintain a healthy weight. 4. Autonomic dysfunction (G90.9: Disorder of the autonomic nervous system, unspecified) Stable. Documentation services were performed after patient or guardian consented to allow Kristen Rush Wheatley to record this visit. KATHE associate relations specialist and provider reviewed before signing. KATHE: Cierra Martinez. Follow-up With When Contact Information MARNIE SOSA (more content not included)... Normal [facility] Comment on above: Result Comment: Elec tronically Signed By: Jaylene DYE CNP\.br\Date and Time Signed: 03/11/21 08:08 EST\.br\Electronically Co-Signed By: Cierra Martinez\.br\Date and Time Co-Signed: 03/10/21 18:49 EST Patient Educationon 03-10-20 Patient Education Infectious Disease Impetigo, Adult Impetigo is an infection of the skin. It commonly occurs in young children, but it can also occur in adults. The infection causes itchy blisters and sores that produce brownish-yellow fluid. As the fluid dries, it forms a thick, honey-colored crust. These skin changes usually occur on the face, but they can also affect other areas of the body. Impetigo usually goes away in 7?10 days with treatment. What are the causes? This condition is caused by two types of bacteria. It may be caused by staphylococci or streptococci bacteria. These bacteria cause impetigo when they get under the surface of the skin. This often happens after some damage to the skin, such as: ? Cuts, scrapes, or scratches. ? Rashes. ? Insect bites, especially when you scratch the area of a bite. ? Chickenpox or other illnesses that cause open skin sores. ? Nail biting or chewing. Impetigo can spread easily from one person to another (is contagious). It may be spread through close skin contact or by sharing towels, clothing, or other items that an infected person has touched. What increases the risk? The following factors may make you more likely to develop this condition: ? Playing sports that include [id number]-[id number] contact with others. ? Having a skin condition with open sores, such as chickenpox. ? Having diabetes. ? Having a weak body defense system (immune system). ? Having many skin cuts or scrapes. ? Living in an area that has high humidity levels. ? Having poor hygiene. ? Having high levels of staphylococci in your nose. What are the signs or symptoms? The main symptom of this condition is small blisters, often on the face around the mouth and nose. In time, the blisters break open and turn into tiny sores (lesions) with a yellow crust. In some cases, the blisters cause itching or burning. With scratching, irritation, or lack of treatment, these small lesions may get larger. Other possible symptoms include: ? Larger blisters. ? Pus. ? Swollen lymph glands. Scratching the affected area can cause impetigo to spread to other parts of the body. The bacteria can get under the fingernails and spread when you touch another area of your skin. How is this diagnosed? This condition is usually diagnosed during a physical exam. A skin sample or a sample of fluid from a blister may be taken for lab tests that involve growing bacteria (culture test). Lab tests can help to confirm the diagnosis or help to determine the best treatment. How is this treated? Treatment for this condition depends on the severity of the condition: ? Mild impetigo can be treated with prescription antibiotic cream. ? Oral antibiotic medicine may be used in more severe cases. ? Medicines that reduce itchiness (antihistamines)may also be used. Follow these instructions at home: Medicines ? Take jfhm-ecw-koluuaz and prescription medicines only as told by your health care provider. ? Apply or take your antibiotic as told by your health care provider. Do not stop using the antibiotic even if your condition improves. General instructions ? To help prevent impetigo from spreading to other body areas: ? Keep your fingernails short and clean. ? Do not scratch the blisters or sores. ? Cover infected areas, if necessary, to keep from scratching. ? Wash your hands often with soap and warm water. ? Before applying antibiotic cream or ointment, you should: ? Gently wash the infected areas with antibacterial soap and warm water. ? Soak crusted areas in warm, soapy water using antibacterial soap. ? Gently rub the areas to remove crusts. Do not scrub. ? Do not share towels. ? Wash your clothing and bedsheets in warm water that is 140?F (60?C) or warmer. ? Stay home until you have used an antibiotic cream for 48 hours (2 days) or an oral antibiotic medicine for 24 hours (1 day). You should only return to work and activities with other people if your skin shows significant improvement. ? You may return to contact sports after you have used antibiotic medicine for 72 hours (3 days). ? Keep all follow-up visits as told by your health care provider. This is important. How is this prevented? ? Wash your hands often with soap and warm water. ? Do not share towels, washcloths, clothing, bedding, or razors. ? Keep your fingernails short. ? Keep any cuts, scrapes, bug bites, or rashes clean and covered. ? Use insect repellent to prevent bug bites. Contact a health care provider if: ? You develop more blisters or sores even with treatment. ? Other family members get sores. ? Your skin sores are not improving after 72 hours (3 days) of treatment. ? You have a fever. Get help right away if: ? You see spreading redness or swelling of the skin around your sores. ? You see red streaks coming from your sores. ? You develop a sore throat. ? The area around your rash becomes warm, red, or tender to the (more content not included)... Normal [facility] Encounters Encounter Date Encounter Type Care Provider Facility Start: 05-01-2024 End: 05-01-2024 Plug Appsheet Wilbert Mccarthy DO Work Phone: [facility] Start: 05-01-2024 End: 05-01-2024 Plug Appsheet Wilbert Mccarthy DO Work Phone: [facility] Start: 04-20-2023 End: 04-20-2023 ambulatory WILBERT MCCARTHY Not Available Start: 05-13-2022 Encounter for cervic al smear to confirm findings of recent normal smear following initial abnormal smear DR WILBERT MCCARTHY . [facility] Start: 05-09-2022 End: 05-09-[address] WILBERT MCCARTHY . Facility:[facility] Start: 05-09-2022 End: 05-09-2022 Encounter for cervical smear to confirm findings of recent normal smear following initial abnormal smear DR WILBERT MCCARTHY . Facility:[facility] Start: 10-07-2021 End: 10-07-[address] DES NGUYEN Facility:[facility] Start: 07-20-2021 End: 07-20-2021 Off-Site Jaylene A DONNAMILLER [facility] Plan of Treatment Date Care Activity Detail Author Start: 05-01-2024 End: 05-01-2024 Patient encounter procedure 05/01/2024 11:00 AM EST Office Visit [facility] [address] [place] [id number] Wilbert Mccarthy DO [address] [place] [address] Arrived [facility] Comment on above: Arrived Immunizations Immunization Date Immunization Notes Care Provider Fa cilisushma NEGATED: Highlighted row has not occurred!07-20-2021 SARS-CoV-2 (COVID-19) Ad26 vaccine, recombinant Jaylene DONNAMILLER [facility] NEGATED: Highlighted row has not occurred!06-15-2021 influenza virus vaccine, unspecified formulation Jaylene DONNAMILLER [facility] NEGATED: Highlighted row has not occurred!04-25-2019 influenza virus vaccine, live, attenuated, for intranasal use Jaylene DYE [facility] Payers Date Payer Category Payer Medicaid (Managed Care) [employer] [id number] 1995 Unknown [id number] 1995 Unknown [id number] 1995 Unknown [id number] 1959 Unknown [id number] Social History Date Type Detail Facility Start: 07-20-2021 End: 10-09-2022 Tobacco smoking status Never smoked tobacco (finding) [facility] Tobacco smoking status Never [facility] Start: 10-09-2022 Sex Assigned At Female F [facility] [employer] Start: 10-09-2022 Tobacco use and exposure Smokeless tobacco non-user [facility] Start: 04-20-2023 Alcoholic beverage intake Current drinker of alcohol (finding) [facility] Start: 10-09-2022 History of Social function [facility] Start: 10-09-2022 Alcohol Comment Occasional Alcohol u se [facility] Start: 1995 Sex assigned at Not on file N [facility] Discharge instructions 07-20-2021 Note Date & Type Note Facility 07-20-2021 Hospital Discharg e instructions Patient Education 07/20/2021 16:23:28 BMI for Adults BMI for Adults Body mass index (BMI) is a number that is calculated from a person's weight and height. BMI may help to estimate how much of a person's weight is composed of fat. BMI can help identify those who may be at higher risk for certain medical problems. How is BMI used with adults? BMI is used as a screening tool to identify possible weight problems. It is used to check whether a person is obese, overweight, healthy weight, or underweight. How is BMI calculated? BMI measures your weight and compares it to your height. This can be done either in [place] ([place] or metric measurements. Note that charts are available to help you find your BMI quickly and easily without having to do these calculations yourself. To calculate your BMI in [place] measurements, your health care provider will: 1.Measure your weight in pounds (lb). 2.Multiply the number of pounds by 703. For example, for a person who weighs 180 lb, multiply that number by 703, which equals 126,540. 3.Measure your height in inches (in). Then multiply that number by itself to get a measurement called inches squared. For example, for a person who is 70 in tall, the inches squared measurement is 70 in x 70 in, which equals 4900 inches squared. 4.Divide the total from Step 2 (number of lb x 703) by the total from Step 3 (inches squared): 126,540 4900 = 25.8. This is your BMI. To calculate your BMI in metric measurements, your health care provider will: 1.Measure your weight in kilograms (kg). 2.Measure your height in meters (m). Then multiply that number by itself to get a measurement called meters squared. For example, for a person who is 1.75 m tall, the meters squared measurement is 1.75 m x 1.75 m, which is equal to 3.1 meters squared. 3.Divide the number of kilograms (your weight) by the meters squared number. In this example: 70 3.1 = 22.6. This is your BMI. How is BMI interpreted? To interpret your results, your health care provider will use BMI charts to identify whether you are underweight, normal weight, overweight, or obese. The following guidelines will be used: Underweight: BMI less than 18.5. Normal weight: BMI between 18.5 and 24.9. Overweight: BMI between 25 and 29.9. Obese: BMI of 30 and above. Please note: Weight includes both fat and muscle, so someone with a muscular build, such as an athlete, may have a BMI that is higher than 24.9. In cases like these, BMI is not an accurate measure of body fat. To determine if excess body fat is the cause of a BMI of 25 or higher, further assessments may need to be done by a health care provider. BMI is usually interpreted in the same way for men and women. Why is BMI a useful tool? BMI is useful in two ways: Identifying a weight problem that may be related to a medical condition, or that may increase the risk for medical problems. Promoting lifestyle and diet changes in order to reach a healthy weight. Summary Body mass index (BMI) is a number that is calculated from a person's weight and height. BMI may help to estimate how much of a person's weight is composed of fat. BMI can help identify those who may be at higher risk for certain medical problems. BMI can be measured using [place] measurements or metric measurements. To interpret your results, your health care provider will use BMI charts to identify whether you are underweight, normal weight, overweight, or obese. This information is not intended to replace advice given to you by your health care provider. Make sure you discuss any questions you have with your health care provider. Document Released: 11/22/2004 Document Revised: 02/23/2018 Document Reviewed: 01/24/2018 [employer] Patient Education 2020 [employer] Follow Up Care 06/15/2021 13:17:11 With:[facility] Address: When:3 months [facility] Evaluation + Plan note Note Date & Type Note Facility Evaluation + Plan note No data available for this section [facility] Purpose Family History No Family History Records FoundNo Family History Records FoundNo Family History Records Found Advance Directives No Advanced Directives Records FoundNo Advanced Directives Records FoundNo Advanced Directives Records Found Additional Source Comments INFORMATION SOURCE (unrecogn ized section and content) DATE CREATED AUTHOR 07/22/2021 Chip Wade [facility] DATE CREATED AUTHOR AUTHOR'S ORGANIZ ATION 05/18/2022 [facility] DATE CREATED AUTHOR AUTHOR'S ORGANIZ ATION 04/21/2023 [facility] dical Specialists [facility] Care Teams (unrecognized sec tion and content) Card Services Specialist Relationship Specialty Start Date End Date Doni Stephens MD [address] [place] [address] PCP - General Tanning Wheel Operator 10/11/22 FOR RECORDS PERTAINING TO PATIENTS WHO ARE OR HAVE BEEN ENROLLED IN A CHEMICAL DEPENDENCY/SUBSTANCEABUSE PROGRAM, SOME INFORMATION MAY BE OMITTED. This clinical summary was aggregated from multiple sources. Caution should be exercised in using it in the provision of clinical care. This summary normalizes information from multiple sources, and as a consequence, information in this document may materially change the coding, format and clinical context of patient data. In addition, data may be omitted in some cases. CLINICAL DECISIONS SHOULD BE BASED ON THE PRIMARY CLINICAL RECORDS. [employer] provides no warranty or guarantee of the accuracy or completeness of information in this document.
[2024-05-06 22:06] LABS: Age Gdln ACOG Testing Note (.); IGP, rfx Aptima HPV ASCU Note (.)
== END 2024-05-01 20:48 | disposition home or self-care (01) ==
LOC: LAB 20:47
PROVIDERS: Visit Provider Obstetrics & Gynecology
DX: Z01.419 Encounter for gynecological examination (general) (routine) without abnormal findings (principal); L98.8 Other specified disorders of the skin and subcutaneous tissue; L91.8 Other hypertrophic disorders of the skin
CPT/HCPCS: 88175; 88304